=== PATIENT | male | born 1985 | race Caucasian/White ===

== ENCOUNTER 2018-03-04 19:48 | Emergency (ER) | payer MEDICAID ==
[~2018-03-04] VITALS: Ht 172.7 cm; Wt 82.1 kg
[2018-03-04 20:12] VITALS: Ht 172.7 cm; Wt 82.1 kg
[2018-03-04 21:15] LABS: BASOPHIL % 0.3 % (0-2); PLATELET COUNT 245 x10^3mcL (130-400); RED CELL DISTRIBUTION WIDTH 14.3 % (11.5-14.5)
[2018-03-04 21:39] LABS: CARBON DIOXIDE 27.2 mmol/L (21-32); CHLORIDE SERUM 100 mmol/L (98-107); GFR1 > 60 mL/min; GLUCOSE SERUM 117 mg/dL (74-106); POTASSIUM SERUM 3.6 mmol/L (3.5-5.1); SODIUM SERUM 136 mmol/L (136-145)
[2018-03-04 21:40] LABS: AMPHETAMINE QUAL UR NONE DETECTED (See below)
[2018-03-04 21:44] LABS: ALBUMIN 4.2 g/dL (3.4-5.0); ALKALINE PHOSPHATASE 71 U/L (46-116); ALT/SGPT 24 U/L (16-63); AST/SGOT 16 U/L (15-37); BILIRUBIN TOTAL 0.5 mg/dL (0.20-1.00); TOTAL PROTEIN, SERUM 7.7 g/dL (6.4-8.2)
[2018-03-05 02:56] VITALS: BP 130/76
== END 2018-03-05 02:56 | disposition home or self-care (01) ==
LOC: ED 19:48
PROVIDERS: Emergency Medicine
DX: F41.9 Anxiety disorder, unspecified (principal); R07.89 Other chest pain; Z90.89 Acquired absence of other organs
CPT/HCPCS: 36415